=== PATIENT | male | born 1975 | race Caucasian/White ===

== ENCOUNTER 2017-10-03 09:16 | Emergency (ER) | payer SELFPAY ==
--- NOTE | 2017-10-03 10:13 | EDPHY ---
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 He is right-hand dominant. His tetanus status is current. He denies numbness or weakness. He denies other injuries. REVIEW OF SYSTEMS: As above. No recent fever, cough, chest pain, shortness of breath, abdominal pain, or back pain. Past medical history: Negative Past surgical history: Negative Social history: He works as a richy. No tobacco use. General Appearance: Alert. Vital signs reviewed. Heart rate 56. Blood pressure 136/89. . Neck: No lymphadenopathy, supple. Respiratory: Lungs are clear to auscultation; no wheezes, rales, or rhonchi. Cardiovascular: Regular rate and rhythm; no murmur, rub, or gallop. Gastrointestinal: Abdomen is soft and nontender. Skin: Warm and dry, no rashes on exposed skin, normal color. Extremities: 4.5 cm linear laceration on the upper anterior aspect of his left arm. Small amount of oozing. On visual inspection there is no visible foreign body and no involvement of the muscle. Neurological: Alert and oriented. Moving all four extremities easily and equally. Strength is 5/5 with testing of left arm flexion, extension, wrist flexion, wrist extension, and general counselor. Sensation is intact to light touch over both upper extremities. Psychiatric: Normal affect. - Medical/Surgical History Other PMH: Appy - Social History Smoking Status: Never smoked Constitutional: Initial Vital Signs Temperature (C) 37 C 10/03/17 09:20 Heart Rate 59 L 10/03/17 09:20 Respiratory Rate 16 10/03/17 09:20 Blood Pressure 136/89 H 10/03/17 09:20 O2 Sat (%) 96 10/03/17 09:20 O2 Delivery Mode Room Air Allergies/Adverse Reactions: No Known Allergies Allergy (Unverified 10/03/17 09:24) Home Medications: Medication Instructions Recorded NK [No Known Home Meds] 10/03/17 Medical Decision Making Procedures: Procedure: Laceration repair. Verbal consent was obtained from the patient. The 4.5 cm laceration on the left upper arm was anesthetized in the usual fashion using lidocaine with epinephrine infiltration. The wound was irrigated, draped and explored to its base with a gloved finger. There were no deep structures involved. No tendon injury was identified. No muscle involvement. The wound was repaired with 4-0 Vicryl for 3 subcutaneous sutures and 4-0 nylon for 8 interrupted skin sutures . The wound repair was 2 layer. The procedure was performed by myself. ED Course/Re-evaluation: Upper arm laceration was repaired. Laceration repair tolerated well. No tendon injury, no muscle injury, no vascular injury. I have not found evidence of other injuries. Patient was informed that there will be a scar at this site. He is referred to workman's compensation. [place] [employer] technicians telephone to assist in translation. Departure - Departure Disposition: Home, Routine, Self-Care Clinical Impression: Arm laceration Qualifiers: Encounter type: initial encounter Laterality: left Qualified Code(s): S41.112A - Laceration without foreign body of left upper arm, initial encounter Condition: Good Instructions: Laceration (ED) Additional Instructions: Keep the wound clean and dry. Do not get it wet for 24 hr, after that it is okay to gently wash the wound and covered again. There are 8 stitches on the outside. These need to be removed in 10 days. Watch carefully for signs of infection such as fever, redness, warmth, increasing pain, and drainage of pus. Mantega espinal herida limpia y seca. No la moje por 24 horas, despues se le permite que la lave suavemente la herida y cubra de nuevo. Usted tiene 8 puntadas en la parte externa, y se tienen que remover dentro de 10 lennon. Revise cuidadosamente por cherelle de infeccion khalif luca fiebre, enrojecimiento, calor, aumento de dolor y desecho o pus. Referrals: Work Comp Ref/[facility] [place] [Outside] - As per Instructions Work Comp Ref[place] [facility] [place] - As per Instructions Print Language: [place]
[2017-10-03 10:35] VITALS: BP 118/78
== END 2017-10-03 10:28 | disposition home or self-care (01) ==
LOC: CED 09:16
PROC: 0HQCXZZ Repair Left Upper Arm Skin, External Approach (ICD-10-PCS; principal; 2017-10-03)
DX: S41.112A Laceration without foreign body of left upper arm, initial encounter (principal); W27.0XXA Contact with workbench tool, initial encounter; Y92.69 Other specified industrial and construction area as the place of occurrence of the external cause; Y99.0 Civilian activity done for income or pay; Y93.89 Activity, other specified